=== PATIENT | male | born 1980 | race Asian ===

== ENCOUNTER 2018-12-17 13:21 | Emergency (ER) | payer BC ==
[~2018-12-17] VITALS: Ht 162.6 cm; Wt 61.2 kg
--- NOTE | 2018-12-17 13:32 | NUR ---
at bedside to examine and talk to pt.
[2018-12-17] MEDS ORDERED: ASPIRIN 81 MG TAB.CHEW PO ONE (13:45)
[2018-12-17] MEDS ORDERED: ASPIRIN 81 MG TAB.CHEW ONE (13:56)
[2018-12-17 14:04] LABS: BASOPHILS # (AUTO) 0.1 K/uL (0.0-8.0); BASOPHILS % (AUTO) 1.2 % (0.0-2.0); EOSINOPHILS # (AUTO) 0.1 K/uL (0.0-0.7); EOSINOPHILS % (AUTO) 2.5 % (0.0-7.0); HEMATOCRIT 42.1 % (36.7-47.1); HEMOGLOBIN 13.9 g/dL (12.5-16.3); LYMPHOCYTES % (AUTO) 37.7 % (20.5-51.5); MEAN CORPUSCULAR HEMOGLOBIN 29.3 uug (23.8-33.4); MEAN CORPUSCULAR HGB CONC 33 g/dL (32.5-36.3); MEAN CORPUSCULAR VOLUME 88.9 fL (73.0-96.2); MONOCYTES # (AUTO) 0.5 K/uL (2.0-10.0); MONOCYTES % (AUTO) 8.8 % (0.0-11.0); NEUTROPHILS # (AUTO) 2.6 K/uL (1.8-8.9); NEUTROPHILS % (AUTO) 49.8 % (38.5-71.5); PLATELET COUNT (AUTO) 254 K/uL (152-348); RED BLOOD CELL COUNT(AUTO) 4.74 MIL/uL (4.06-5.63); WHITE BLOOD COUNT (AUTO) 5.3 K/uL (3.6-10.2)
[2018-12-17 14:11] LABS: CREATININE 1.1 mg/dL (0.6-1.3); POTASSIUM 4.1 mmol/L (3.5-5.1)
--- NOTE | 2018-12-17 14:25 | NUR ---
HR 58, 96% sat in RA. 130/80.
--- NOTE | 2018-12-17 15:30 | NUR ---
Hr 59, 96% Ra, 129/81
--- NOTE | 2018-12-17 16:21 | NUR ---
at bedside updating pt. on care plan.
[2018-12-17 16:54] VITALS: BP 129/82
--- NOTE | 2018-12-17 16:56 | NUR ---
pt dcd by [facility] Bhat left room [id number]. no c/of cp, or sob. ambulatory steady gait.
== END 2018-12-17 16:58 | disposition home or self-care (01) ==
LOC: ER 13:21
DX: R07.89 Other chest pain (principal); R06.02 Shortness of breath; R00.2 Palpitations
CPT/HCPCS: 36415; 70030-TC; 71045; 85025; 93005; A4663; J7030